=== PATIENT | male | born 1960 | race Caucasian/White ===

== ENCOUNTER 2021-07-09 07:13 | Day surgery (SDC) | payer BC, OTHER ==
[~2021-07-09] VITALS: Ht 175.3 cm; Wt 111.0 kg
[2021-07-09] MEDS ORDERED: OMEP20CA16 PO (07:51)
[2021-07-09] MEDS ORDERED: METO25TA4 PO (07:51)
[2021-07-09] MEDS ORDERED: ATOR20TA58 PO (07:51)
[2021-07-09] MEDS ORDERED: LISI-517 PO (07:51)
[2021-07-09] MEDS ORDERED: FINA5TAB4 PO (07:51)
[2021-07-09 08:00] VITALS: BP 165/109
[2021-07-09] MEDS ORDERED: IV RINGERS,LACTATED 1000ML 1,000 ML IV SCH (08:00)
[2021-07-09] MEDS ORDERED: LIDOCAINE 2% PF 5 ML VIAL. ONE (08:12)
[2021-07-09] MEDS ORDERED: PROPOFOL 10 MG/ML (20ML) VIAL. IV ONE (08:12)
--- NOTE | 2021-07-09 08:47 | CONS ---
DATE OF CONSULTATION: 07/09/2021 GI CONSULTATION REFERRING PHYSICIAN: Andrea Berry MD REASON FOR CONSULTATION: Colorectal screening. HISTORY OF PRESENT ILLNESS: A 61-year-old male whose past medical history is significant for hyperlipidemia, hypertension, gastroesophageal reflux disease, is seen for screening colon exam. Bowel habits are regular without diarrhea or constipation and frequent painless bleeding is noted with defecation. FAMILY HISTORY: Unrevealing for colon polyps or colon cancers. Weight and appetite are stable. He is otherwise without additional complaints. PAST MEDICAL HISTORY: Hyperlipidemia, hypertension, gastroesophageal reflux disease. ALLERGIES: CODEINE. MEDICATIONS: Include atorvastatin, finasteride, lisinopril, metoprolol, omeprazole. SOCIAL HISTORY: Nonsmoker, social drinker. FAMILY HISTORY: Noncontributory. PAST SURGICAL HISTORY: Noncontributory. REVIEW OF SYSTEMS: HEENT: There are no decreased hearing or visual acuity issues. CARDIAC: There is history of hypertension. PULMONARY: There is no history of shortness of breath, productive cough or asthma. RENAL: No dysuria, frequency, hematuria. ENDOCRINE: History of hyperlipidemia. GASTROINTESTINAL: See history of present illness. HEMATOLOGIC: No bleeding, bruising or coagulopathy. NEUROLOGIC: No stroke, migraine, or neuropathy. PSYCHIATRIC: No mood swings, depression, or insomnia. MUSCULOSKELETAL: History of osteoarthrosis. PHYSICAL EXAMINATION: GENERAL: Reveals a well-nourished, well-developed male who is alert, cooperative, in no acute distress. VITAL SIGNS: Temp is 98.8, pulse 80, respiratory rate is 20. LUNGS: Clear. CARDIOVASCULAR: Reveals an S1, S2, without S3, S4 or appreciable murmur. ABDOMEN: With a soft abdomen, normal bowel sounds, without appreciable hepatosplenomegaly. EXTREMITIES: Reveals no cyanosis, clubbing or edema. IMPRESSION: Colorectal screening is warranted at this time. Risks and benefits of procedure including risk of hemorrhage and perforation with operation have been discussed with the patient and he is willing to proceed. Thank you, Dr. Berry, for allowing us to consult and participate in this patient's care. INDERJIT DR: Tanvir TID: [id number] CC: ANDREA BERRY MD
[2021-07-09 08:59] VITALS: BP 149/97
--- NOTE | 2021-07-11 18:11 | PATHOLOGY ---
[facility] Accession Number: [id number] . 01 Material submitted: . PART A: sigmoid colon - SIGMOID COLON POLYP BIOPSY PART B: rectum - RECTAL POLYP BIOPSY . 02 Diagnosis: A. Colon biopsy, sigmoid colon polyp: - Hyperplastic polyp. . B. Colorectal biopsies, rectal polyps: - Tubular adenomas. . (JPM:jorge; 07/11/2021) MBR 07/11/2021 1644 Local . 02 Comment: There is no high-grade dysplasia or evidence of malignancy. (JPM:jorge; 07/11/2021) . 02 Electronically signed: . Po Villalpando MD, Pathologist NPI- [id number] . 01 Gross description: . A. The specimen is received in formalin, labeled "Morgan, Dom, sigmoid colon polyp biopsy". Received is a single segment of pale velasco tissue measuring 0.5 cm in maximum dimensions. The specimen is submitted entirely in cassette A1. . B. The specimen is submitted in formalin, labeled "Morgan, Dom, rectal polyps biopsy". Received are multiple segments of pale velasco tissue ranging in size from 0.2 to 1.3 cm in maximum dimensions. The surgical margin of the largest segment is inked and the specimen is bisected. The specimen is submitted entirely in cassette B1. During sectioning, fragmentation has occurred. ([facility]; 07/10/2021) NRI/NRI 07/10/2021 1758 Local . 02 Pathologist provided ICD-10: K63.5, D12.8 . 02 CPT . 013046, [id number] Specimen Comment: A courtesy copy of this report has been sent to [phone], [phone] Specimen Comment: [id number] Specimen Comment: Report sent to / DR REED Performed at: [address] [facility] [address], [place], [place] [id number] MD Pranav Mcmillan MD Phone: [phone] Performed at: 02 [facility] [address] [place], [place] [id number] MD Po Villalpando MD Phone: [phone]
== END 2021-07-09 09:17 | disposition home or self-care (01) ==
LOC: ENDOS 07:13
PROVIDERS: ATTEND Internal Medicine Gastroenterology
DX: Z12.11 Encounter for screening for malignant neoplasm of colon (principal); K57.30 Diverticulosis of large intestine without perforation or abscess without bleeding; K64.0 First degree hemorrhoids; D12.8 Benign neoplasm of rectum; I10 Essential (primary) hypertension; K21.9 Gastro-esophageal reflux disease without esophagitis; E78.00 Pure hypercholesterolemia, unspecified; Z79.899 Other long term (current) drug therapy; Z98.890 Other specified postprocedural states; Z72.89 Other problems related to lifestyle; Z88.5 Allergy status to narcotic agent
CPT/HCPCS: 45381; 45385; C1713; J2704